=== PATIENT | female | born 1990 | race African-American/Black ===

== ENCOUNTER 2018-05-16 23:25 | Inpatient (IN) | payer MEDICAID ==
[~2018-05-16] VITALS: Ht 180.3 cm; Wt 88.0 kg
--- NOTE | 2018-05-16 23:35 | NUR ---
pt walked in by herself c/o generalized pain, 9/10 on scale. States she has sickle cell, has a portacath on her right chest which was last accessed 2 weeks ago. Pt is A. O/4, walks without assistance, breathing without difficulty to RA.
[2018-05-17] VITALS (8 sets, daily range): BP systolic 110–121; BP diastolic 62–81
[2018-05-17] MEDS ORDERED: ONDANSETRON HCL/PF 4 MG/2 ML VIAL ONE (00:27)
[2018-05-17] MEDS ORDERED: HYDROMORPHONE 1 MG/1 ML DISP.SYRIN ONE ×2 (00:27→01:41)
[2018-05-17] MEDS ORDERED: IV NS 0.9% 1,000 ML BAG IV ONE (00:30)
[2018-05-17] MEDS ORDERED: ONDANSETRON HCL/PF 4 MG/2 ML VIAL IVP ONE (00:30)
[2018-05-17] MEDS ORDERED: HYDROMORPHONE INJ 2 MG/ML DISP.SYRIN IV ONE (00:30)
[2018-05-17 00:50] LABS: BASOPHILS # (AUTO) 0.2 /CMM (0.0-0.2); BASOPHILS % (AUTO) 1.5 % (0.0-2.0); EOSINOPHILS % (AUTO) 2.2 % (0.0-6.0); HEMATOCRIT 26 % (33-45); HEMOGLOBIN 8.6 g/dL (11.5-14.8); LYMPHOCYTES # (AUTO) 3.7 /CMM (0.8-4.8); LYMPHOCYTES % (AUTO) 27.4 % (20.0-44.0); MEAN CORPUSCULAR HGB CONC 33 g/dl (31.0-36.0); MEAN CORPUSCULAR VOLUME 89 fL (82-100); MONOCYTES # (AUTO) 1.6 /CMM (0.1-1.30); MONOCYTES % (AUTO) 11.4 % (2.0-12.0); NEUTROPHILS # (AUTO) 7.8 /CMM (1.8-8.9); NEUTROPHILS % (AUTO) 57.5 % (43.0-81.0); PLATELET COUNT (AUTO) 516 /CMM (150-450); RED BLOOD CELL COUNT(AUTO) 2.87 MIL/uL (4.0-5.2); WHITE BLOOD COUNT (AUTO) 13.6 K/uL (4.3-11.0)
[2018-05-17 00:57] LABS: CALCIUM, SERUM 8.3 mg/dL (8.5-10.1); CREATININE 0.7 mg/dL (0.6-1.3)
[2018-05-17] MEDS ORDERED: HYDROMORPHONE 1 MG/1 ML DISP.SYRIN IV ONE (01:30)
[2018-05-17] MEDS ORDERED: diphenhydrAMINE HCL 50 MG/ML VIAL IV ONE (01:30)
--- NOTE | 2018-05-17 01:39 | NUR ---
PT IS ASSIGNED TO MED SURG RM#: [id number]
[2018-05-17] MEDS ORDERED: diphenhydrAMINE HCL ELIX 25 MG/10 ML UDC ONE (01:40)
[2018-05-17] MEDS ORDERED: diphenhydrAMINE HCL 50 MG/ML VIAL ONE (01:43)
[2018-05-17] MEDS ORDERED: POTASSIUM CHLORIDE 20 MEQ TAB.PRT.SR PO ONE ×3 (01:44→02:00)
[2018-05-17] MEDS ORDERED: MAGNESIUM HYDROXIDE 30 ML UDC PO PRN (02:00)
[2018-05-17] MEDS ORDERED: Z GUARD REMEDY 2 OZ OINT TP PRN (02:00)
[2018-05-17] MEDS ORDERED: MAG HYDROX/AL HYDROX/SIMETH 30 ML UDC PO PRN (02:00)
--- NOTE | 2018-05-17 02:15 | NUR ---
Rogelio tavares in ED - 05/17/18 at 0220 by BECKY Pt will be admitted to [facility], Rm [id number]. Report given to ARACELI Leslie.
--- NOTE | 2018-05-17 02:15 | NUR ---
Pt will be admitted to [facility], Rm [id number]. Report given to ARACELI Leslie.
--- NOTE | 2018-05-17 02:22 | NUR ---
Pt transported to Rm [id number] via wheelchair
[2018-05-17] MEDS: IV NS 0.9% 1,000 ML IV PRN ×3 (02:32→19:07)
--- NOTE | 2018-05-17 02:32 | NUR ---
RN NOTE RECEIVED PATIENT FROM ER, AMBULATORY, ALERT/ORIENTED X 4, NO DISTRESS NOTED, DX SICKLE CELL CRISES, RIGHT CHEST PORT CATH, SKIN IS INTACT, NO S/S OF INFECTION/INFILTRATION NOTED, SKIN IS INTACT, ALL SAFETY MEASURES TAKEN, WILL CONTINUE TO MONITOR PATIENT
[2018-05-17 02:48] LABS: APPEARANCE,URINE CLEAR (CLEAR); BILIRUBIN,URINE NEGATIVE (NEGATIVE); BLOOD, URINE NEGATIVE Ery/uL (NEGATIVE); COLOR,URINE YELLOW (YELLOW); KETONES,URINE NEGATIVE (NEGATIVE); LEUKOCYTE ESTERASE ,URINE NEGATIVE (NEGATIVE); NITRITE, URINE NEGATIVE (NEGATIVE); PROTEIN,URINE NEGATIVE (NEGATIVE); UGLUCOSE NEGATIVE (NEGATIVE); UROBILINOGEN,URINE 0.2 EU/dL (0.2)
[2018-05-17] MEDS ORDERED: MORPHINE SULFATE INJ 4 MG/ML DISP.SYRIN ONE ×2 (02:52→06:50)
[2018-05-17] MEDS: MORPHINE SULFATE INJ 2 MG/ML DISP.SYRIN IV PRN ×2 (02:54→06:54)
--- NOTE | 2018-05-17 03:00 | NUR ---
RN NOTE PATIENT HAS AN ORDER FOR BLOOD TRANSFUSION, AWAITING FOR LAB TO PREPARE PRBC, PATIENT STATED THAT SHE USUALLY GETS ITCHINESS AFTER TRANSFUSION AND THAT SHE GETS IV BENADRYL AFTER TRANSFUSION, NOTIFIED NORBERT MEDRANO NURSE PRACTIONER, NURSE PRACTIONER NORBERT MEDRANO PUT AN ORDER FOR DIPHENHYDRAMINE HCL 12.5MG IV ONCE POST BLOOD TRANSFUSION, WILL ADMINISTER ONCE BLOOD IS READY
--- NOTE | 2018-05-17 03:00 | NUR ---
RN NOTE PATIENT REQUESTED BENADRYL PO DUE TO MILD ITCHINESS, NOTIFIED MARCELA TOUSSAINT SENIOR RESEARCH CONSULTANT FOR PATIENT'S REQUEST, PER SENIOR RESEARCH CONSULTANT MARCELA TOUSSAINT IT IS UNSAFE TO RECEIVE IV BENADRYL (PATIENT RECEIVED MEDICATION IN THE ER 2 HOURS AGO) AND PO BENADRYL WITHIN SUCH A SHORT PERIOD OF TIME, AND CONTINUE TO MONITOR FOR NOW, EXPLAINED PATIENT ALL RISKS AND BENEFITS, PATIENT IS AWARE, CHARGE NURSE IS AWARE
[2018-05-17] MEDS ORDERED: D5W IV PRN ×4 (03:30)
[2018-05-17] MEDS ORDERED: DIPHENHYDRAMINE HCL IV PRN ×4 (03:30)
[2018-05-17] MEDS: HYDROCODONE/APAP 5/325MG 1 EACH TABLET PO PRN ×4 (04:27→21:42)
[2018-05-17 06:52] LABS: BASOPHILS # (AUTO) 0.2 /CMM (0.0-0.2); BASOPHILS % (AUTO) 1.5 % (0.0-2.0); EOSINOPHILS % (AUTO) 2.9 % (0.0-6.0); HEMATOCRIT 23 % (33-45); HEMOGLOBIN 7.8 g/dL (11.5-14.8); LYMPHOCYTES # (AUTO) 4.8 /CMM (0.8-4.8); MEAN CORPUSCULAR HGB CONC 34 g/dl (31.0-36.0); MEAN CORPUSCULAR VOLUME 90 fL (82-100); MONOCYTES # (AUTO) 1.7 /CMM (0.1-1.30); MONOCYTES % (AUTO) 11.5 % (2.0-12.0); NEUTROPHILS # (AUTO) 7.4 /CMM (1.8-8.9); NEUTROPHILS % (AUTO) 51.1 % (43.0-81.0); PLATELET COUNT (AUTO) 459 /CMM (150-450); RED BLOOD CELL COUNT(AUTO) 2.58 MIL/uL (4.0-5.2); WHITE BLOOD COUNT (AUTO) 14.6 K/uL (4.3-11.0)
--- NOTE | 2018-05-17 06:55 | NUR ---
RN NOTE PATIENT IS IN BED, ALERT/ORIENTED X 4, NO APPARENT DISTRESS NOTED, PAIN IS WELL CONTROLLED, WILL CONTINUE TO MONITOR PATIENT
--- NOTE | 2018-05-17 07:15 | NUR ---
MS/RN OPENING NOTE THE PATIENT IS RECEIVED IN BED. THE PATIENT IS AWAKE, ALERT AND ORIENTED X4. DENIES SOB AT THIS TIME. THE PATIENT COMPLAINS OF PAIN 4/10 BUT STATES THAT MORPHINE GIVEN EARLIER IS STATING TO DECREASE THE PAIN. THE PATIENT IS MADE AWARE THAT THE PAIN MONITORING/ASSESSMENT WILL BE DONE AND PRN PAIN MEDICATIONS GIVEN ORDERED. THE PATIENT VERBALIZED UNDERSTANDING. NORMAL SALINE INFUSING AT 150ML/HR VIA RIGHT CHEST PORTACATH AND NO S/S COMPLICATIONS NOTED. BED LOW AND LOCKED. SIDE RAILS UP X2. CALL LIGHT WITHIN REACH. WILL CONTINUE TO MONITOR.
[2018-05-17] MEDS ORDERED: MELA3TAB PO (07:45)
[2018-05-17] MEDS ORDERED: FOLI1TAB16 PO (07:45)
[2018-05-17] MEDS ORDERED: BUDE10.2 IH (07:45)
[2018-05-17] MEDS ORDERED: ALBU18HF2 IH (07:45)
[2018-05-17] MEDS ORDERED: HYDR500C2 PO (07:45)
[2018-05-17] MEDS: ONDANSETRON HCL/PF 4 MG/2 ML VIAL IVP PRN (07:56)
--- NOTE | 2018-05-17 07:56 | NUR ---
MS/RN NOTE THE PATIENT ANUSHA COMPLAIN OF NAUSEA AND REQUESTING MEDICATION TO RELIEVE NAUSEA. THE PATIENT DOES NOT VOMIT AT THIS TIME. ADMINISTERED ZOFRAN IV PUSH PER ORDER. WILL MONITOR FOR EFFECTIVENESS. HOB ELEVATED TO PREVENT ASPIRATION IN CASE OF VOMITING.
--- NOTE | 2018-05-17 08:26 | NUR ---
MS/RN NOTE THE PATIENT VERBALIZED RELIEF FROM NAUSEA. PER PATIENT ZOFRAN WAS EFFECTIVE. WILL CONTINUE TO MONITOR.
[2018-05-17] MEDS ORDERED: ENOXAPARIN SODIUM 30 MG/0.3 ML DISP.SYRIN SQ SCH (09:00)
[2018-05-17] MEDS: DOCUSATE SODIUM 100 MG CAPSULE PO SCH ×2 (09:47→17:05)
[2018-05-17] MEDS: PANTOPRAZOLE 40 MG TABLET.DR PO SCH (09:47)
[2018-05-17] MEDS ORDERED: ENOXAPARIN SODIUM 40 MG/0.4 ML DISP.SYRIN SQ SCH (10:00)
--- NOTE | 2018-05-17 10:05 | NUR ---
MS/RN NOTE PER EVA FROM LAB STILL WAITING FOR PREPARATION OF ORDERED TRANSFUSION. PER EVA MOST LIKELY IT WILL BE READY TONIGHT. WILL CONTINUE TO MONITOR AND FOLLOW UP. DR RAMIREZ IS MADE AWARE.
[2018-05-17] MEDS ORDERED: Medication Not On Formulary EA (Budesonide/Formoterol Fumarate (Symbicort 160-4.5 Mcg In IH SCH (10:30)
[2018-05-17] MEDS ORDERED: Medication Not On Formulary EA (Melatonin 3 MG) PO SCH (10:30)
[2018-05-17] MEDS: MORPHINE SULFATE INJ 4 MG/ML DISP.SYRIN IV PRN ×4 (11:02→23:25)
[2018-05-17] MEDS: HYDROXYUREA 500 MG CAPSULE PO SCH ×2 (11:04→17:05)
[2018-05-17] MEDS: FOLIC ACID 1 MG TABLET PO SCH (11:04)
[2018-05-17] MEDS ORDERED: diphenhydrAMINE HCL 50 MG/ML VIAL IV PRN (11:30)
--- NOTE | 2018-05-17 13:01 | NUR ---
MS/RN NOTE THE PATIENTB HAS COMPLAIN OF GENERALIZED BODY PAIN 12/12. PRN NORCO PO GIVEN ORDERED. WILL CONTINUE FOR EFFECTIVENESS
[2018-05-17] MEDS ORDERED: ALBUTEROL FS 2.5 MG/0.5 ML VIAL.NEB NEB PRN (13:30)
--- NOTE | 2018-05-17 14:33 | NUR ---
MS/RN NOTE REASSESSED PAIN. WILL CONTINUE TO MONITOR.
--- NOTE | 2018-05-17 18:21 | NUR ---
MS/RN CLOSING NOTE THE PATIENT ALERT AND ORIENTED X4. DENIES SOB. RESPIRATION REGULAR AND UNLABORED. PATIENT COMPLAINT OF GENERALIZED BODY PAIN 2/10 AT THIS TIME BUT STATED WANTS TO SLEEP/REST RO RELIEVE THE PAIN. THE PATIENT IS REMINDED ABOUT THE ORDERS OF HER PAIN MEDICATIONS AND THE PATIENT VERBALIZED UNDERSTANDING. ALL NEEDS ATTENDED AND ANTICIPATED. RIGHT CHEST PORTOCATH IS USED TO INFUSE NORMAL SALINE AT 150 ML/HR AND NO COMPLICATIONS NOTED. BED LOW AND LOCKED. SIDE RAILS UP X2. CALL LIGHT WITHIN REACH. WILL ENDORSE TO MACHINE PRECISION ETCHER.
[2018-05-17] MEDS: diphenhydrAMINE HCL 25 MG CAPSULE PO PRN (21:43)
[2018-05-18] VITALS (11 sets, daily range): BP systolic 111–132; BP diastolic 65–91
[2018-05-18] MEDS: HYDROCODONE/APAP 5/325MG 1 EACH TABLET PO PRN (02:20)
--- NOTE | 2018-05-18 02:39 | NUR ---
MS RN NOTES I UNIT PRBC STARTED ORDERED , WITH V/S BP 130/91 HR 74 RR 20 T 97.5 NO ASE NOTED NOTED AT THIS TIME , PTS IS COMFORTABLE IN BED.
--- NOTE | 2018-05-18 02:42 | NUR ---
MS RN NOTES RECEIVED PTS IN BED AWAKE ALERT AND VERBALLY RESPONSIVE, NO SOB NO DISTRESS NOTED , V/S STABLE AFEBRILE PTS ON PORTACATH INTACT AND PATENT , WITH IV F OFNS AT 150 CC/HR INFUSING WELL . ALL NEEDS ATTENDE TOO CALL LIGHT WITHIN REACH , KEPT PTS CLEAN DRY AND COMFORTABLE. WILL CONTINUE TO MONITOR PTS. Addendum: 05/18/18 at 0306 by VASQUEZ ABRAHAM RN TIME RECEIVED PTS IS 05/17 2018 AT 1900HRS
[2018-05-18] MEDS: MORPHINE SULFATE INJ 4 MG/ML DISP.SYRIN IV PRN ×5 (03:18→21:03)
[2018-05-18] MEDS ORDERED: diphenhydrAMINE HCL 50 MG/ML VIAL ONE (04:57)
--- NOTE | 2018-05-18 05:13 | NUR ---
MS RN NOTES BLOOD TRANSFUSION COMPLETED AT 0513 HRS ,NO ASE NOTED V/S STABLE AFEBRILE ,WILL CONTINUE TO MONITOR PTS , BENADRYL 12.5 MG WITH D5 AT 50CC GIVEN POST TRANSFUSION ORDERED.
[2018-05-18] MEDS: IV NS 0.9% 1,000 ML IV PRN ×2 (06:42→22:54)
[2018-05-18 07:23] LABS: BASOPHILS # (AUTO) 0.2 /CMM (0.0-0.2); BASOPHILS % (AUTO) 1.6 % (0.0-2.0); EOSINOPHILS % (AUTO) 5.3 % (0.0-6.0); HEMATOCRIT 25 % (33-45); HEMOGLOBIN 8.6 g/dL (11.5-14.8); LYMPHOCYTES % (AUTO) 28.6 % (20.0-44.0); MEAN CORPUSCULAR HGB CONC 34 g/dl (31.0-36.0); MEAN CORPUSCULAR VOLUME 90 fL (82-100); MONOCYTES # (AUTO) 1.9 /CMM (0.1-1.30); MONOCYTES % (AUTO) 13.4 % (2.0-12.0); NEUTROPHILS # (AUTO) 7.2 /CMM (1.8-8.9); NEUTROPHILS % (AUTO) 51.1 % (43.0-81.0); PLATELET COUNT (AUTO) 419 /CMM (150-450); RED BLOOD CELL COUNT(AUTO) 2.78 MIL/uL (4.0-5.2)
--- NOTE | 2018-05-18 07:30 | NUR ---
MS OPENING NOTES PATIENT RECEIVED IN BED AAOX4. PATIENT COMPLAINED OF PAIN 8/10 AND MORPHINE 2MG GIVEN PER MD ORDER. PATIENT DENIES ANY S/S OF DISTRESS. PATIENT HAS PORTACATH, PATENT INTACT, RUNNNING 150 MLS/HR NS. BED IN LOWEST LOCKED POSITION, ALL NEEDS ATTENDED, CALL LIGHT WITHIN REACH. RN WILL CONTINUE TO MONITOR
[2018-05-18] MEDS: PANTOPRAZOLE 40 MG TABLET.DR PO SCH (07:40)
[2018-05-18 07:50] LABS: CREATININE 0.7 mg/dL (0.6-1.3); MAGNESIUM 1.6 mg/dL (1.8-2.4); PHOSPHORUS 4.1 mg/dL (2.5-4.9); POTASSIUM 3.7 mmol/L (3.5-5.1)
[2018-05-18 08:02] LABS: THYROID STIMULATING HORMONE 1.087 uIU/mL (0.358-3.74)
[2018-05-18] MEDS: DOCUSATE SODIUM 100 MG CAPSULE PO SCH ×2 (08:45→16:35)
[2018-05-18] MEDS: FOLIC ACID 1 MG TABLET PO SCH (08:45)
[2018-05-18] MEDS: HYDROXYUREA 500 MG CAPSULE PO SCH ×2 (08:45→16:34)
[2018-05-18] MEDS: ENOXAPARIN SODIUM 40 MG/0.4 ML DISP.SYRIN SQ SCH (08:46)
[2018-05-18] MEDS: FLUTICASONE/VILANTEROL 1 EACH BLST.W.DEV IH SCH (08:58)
[2018-05-18] MEDS ORDERED: ENOXAPARIN SODIUM 40 MG/0.4 ML DISP.SYRIN SQ SCH (09:00)
[2018-05-18] MEDS ORDERED: Magnesium 1GM/D5W 100ML PREMIX 100 ML IV SCH ×2 (10:46→11:00)
[2018-05-18] MEDS: ACETAMINOPHEN 325 MG TABLET PO PRN ×2 (13:37→20:01)
[2018-05-18] MEDS: ONDANSETRON HCL/PF 4 MG/2 ML VIAL IVP PRN (17:29)
[2018-05-19] MEDS: MORPHINE SULFATE INJ 4 MG/ML DISP.SYRIN IV PRN ×4 (01:07→13:12)
[2018-05-19] MEDS: diphenhydrAMINE HCL 25 MG CAPSULE PO PRN (01:34)
[2018-05-19] MEDS: HYDROCODONE/APAP 5/325MG 1 EACH TABLET PO PRN (01:34)
[2018-05-19 04:00] VITALS: BP 136/89
--- NOTE | 2018-05-19 07:26 | NUR ---
MS OPENING NOTE PATIENT RECEIVED FROM NUCLEAR WEAPONS SPECIALIST, SLEEPING AAOX4. PATIENT PAIN WAS MANAGED WITH MORPHINE Q4. NO S.S OF DISTRESS/SOB/. RN TO CONTINUE WITH CONTINUITY OF CARE. BED IN LOWEST LOCKED POSITION, SIDE RAILS UP X 2, CALL LIGHT AT BEDSIDE.
[2018-05-19 07:44] LABS: BASOPHILS # (AUTO) 0.1 /CMM (0.0-0.2); EOSINOPHILS % (AUTO) 6.1 % (0.0-6.0); HEMATOCRIT 26 % (33-45); HEMOGLOBIN 8.9 g/dL (11.5-14.8); LYMPHOCYTES # (AUTO) 4.2 /CMM (0.8-4.8); MEAN CORPUSCULAR HGB CONC 34 g/dl (31.0-36.0); MEAN CORPUSCULAR VOLUME 91 fL (82-100); MONOCYTES # (AUTO) 1.2 /CMM (0.1-1.30); MONOCYTES % (AUTO) 9.7 % (2.0-12.0); NEUTROPHILS # (AUTO) 6.1 /CMM (1.8-8.9); NEUTROPHILS % (AUTO) 49.2 % (43.0-81.0); PLATELET COUNT (AUTO) 463 /CMM (150-450); RED BLOOD CELL COUNT(AUTO) 2.89 MIL/uL (4.0-5.2); WHITE BLOOD COUNT (AUTO) 12.3 K/uL (4.3-11.0)
[2018-05-19 08:00] VITALS: BP 128/86
[2018-05-19] MEDS: PANTOPRAZOLE 40 MG TABLET.DR PO SCH (08:00)
[2018-05-19] MEDS: FLUTICASONE/VILANTEROL 1 EACH BLST.W.DEV IH SCH (08:12)
[2018-05-19] MEDS: FOLIC ACID 1 MG TABLET PO SCH (08:13)
[2018-05-19] MEDS: HYDROXYUREA 500 MG CAPSULE PO SCH ×2 (08:13→16:40)
[2018-05-19] MEDS: DOCUSATE SODIUM 100 MG CAPSULE PO SCH ×2 (08:13→16:40)
[2018-05-19] MEDS: ENOXAPARIN SODIUM 40 MG/0.4 ML DISP.SYRIN SQ SCH (08:14)
[2018-05-19 08:40] LABS: CALCIUM, SERUM 8.3 mg/dL (8.5-10.1); CREATININE 0.7 mg/dL (0.6-1.3); MAGNESIUM 1.8 mg/dL (1.8-2.4); PHOSPHORUS 3.9 mg/dL (2.5-4.9); POTASSIUM 3.6 mmol/L (3.5-5.1)
[2018-05-19] MEDS ORDERED: BUTA1CAP46 PO (13:32)
[2018-05-19] MEDS ORDERED: OXYC-128 PO (13:32)
[2018-05-19 16:00] VITALS: BP 133/91
[2018-05-19] MEDS ORDERED: HEPARIN SODIUM,PORCINE/PF 50 UNIT/5 ML DISP.SYRIN IV ONE (16:30)
--- NOTE | 2018-05-19 16:55 | NUR ---
MS RN NOTE PATIENT STABLE AT D/C. ALL NEEDS ATTENDED. D/C INSTRUCTIONS GIVEN, PATIENT VERBALIZES UNDERSTANDING. NO S/S OF DISTRESS. PATIENT GIVEN PRESCRIPTIONS FOR PAIN MANAGEMENT AND WAS PICKED UP BY FAMILY MEMBER.
== END 2018-05-19 17:10 | disposition home or self-care (01) | DRG 662 ==
LOC: ER 23:53 → MEDSG1 05-17 01:55
PROVIDERS: ADMIT Student in an Organized Health Care Education/Training Program; ATTEND Student in an Organized Health Care Education/Training Program
PROC: 30233N1 Transfusion of Nonautologous Red Blood Cells into Peripheral Vein, Percutaneous Approach (ICD-10-PCS; principal; 2018-05-18)
DX: D57.00 Hb-SS disease with crisis, unspecified (principal); E83.51 Hypocalcemia; J45.909 Unspecified asthma, uncomplicated; E87.6 Hypokalemia; D72.829 Elevated white blood cell count, unspecified; D64.9 Anemia, unspecified
CPT/HCPCS: 36415; 71045-TC; 80048-TC; 80061-TC; 81000-TC; 83540-TC; 83735-TC; 84100-TC; 84443-TC; 84703-TC; 85025-TC; 85045-TC; 85730-TC; 86850-TC; 86921-TC; 87081-TC; A4606; G0378; J1170; J1200; J1642; J1650; J2270; J2405; J3475; J7030; J7050; J7060; P9016-BL; Q0163; Z7610

== ENCOUNTER 2018-05-21 04:20 | Inpatient (IN) | payer MEDICAID ==
[~2018-05-21] VITALS: Ht 180.3 cm; Wt 92.1 kg
[~2018-05-21 04:20] MED LIST: ALBU18HF2 IH; BUDE10.2 IH; BUTA1CAP46 PO; FOLI1TAB16 PO; HYDR500C2 PO; MELA3TAB PO; OXYC-128 PO
--- NOTE | 2018-05-21 04:40 | NUR ---
BIB SELF C/O PARTIDA X4 DAYS. +NAUSEA, DENIES VOMITING. +DIARRHEA X 2. PAIN LEVEL 9/10. PT IS AOX4, VSS, RESPIRATIONS EVEN AND UNLABORED. NO ACUTE SIGN OF DISTRESS. SKIN WARM TO TOUCH, DRY, INTACT. WAS HERE RECENTLY FOR SICKLE CELL CRISIS AND RECEIVED PERCOCET. STATES MEDICATION NOT EFFECTIVE. READY FOR EVAL.
--- NOTE | 2018-05-21 04:44 | NUR ---
MD GRANT AT BEDSIDE
[2018-05-21] MEDS ORDERED: IV NS 0.9% 1,000 ML BAG IV ONE (05:00)
[2018-05-21] MEDS ORDERED: HYDROMORPHONE INJ 0.5 MG/0.5 ML SYRINGE IV ONE (05:00)
[2018-05-21] MEDS ORDERED: diphenhydrAMINE HCL 50 MG/ML VIAL IV ONE ×2 (05:00→06:00)
[2018-05-21] MEDS ORDERED: ONDANSETRON HCL/PF 4 MG/2 ML VIAL IV ONE (05:00)
[2018-05-21] MEDS ORDERED: diphenhydrAMINE HCL 50 MG/ML VIAL ONE ×2 (05:05→05:49)
[2018-05-21] MEDS ORDERED: HYDROMORPHONE INJ 2 MG/ML DISP.SYRIN ONE ×2 (05:06→06:14)
[2018-05-21] MEDS ORDERED: ONDANSETRON HCL/PF 4 MG/2 ML VIAL ONE (05:06)
[2018-05-21 05:14] LABS: BASOPHILS # (AUTO) 0.2 /CMM (0.0-0.2); BASOPHILS % (AUTO) 1.1 % (0.0-2.0); EOSINOPHILS % (AUTO) 1.1 % (0.0-6.0); HEMATOCRIT 33 % (33-45); HEMOGLOBIN 10.7 g/dL (11.5-14.8); LYMPHOCYTES % (AUTO) 20.8 % (20.0-44.0); MEAN CORPUSCULAR HGB CONC 33 g/dl (31.0-36.0); MEAN CORPUSCULAR VOLUME 90 fL (82-100); MONOCYTES # (AUTO) 1.2 /CMM (0.1-1.30); MONOCYTES % (AUTO) 8.6 % (2.0-12.0); NEUTROPHILS # (AUTO) 9.8 /CMM (1.8-8.9); NEUTROPHILS % (AUTO) 68.4 % (43.0-81.0); PLATELET COUNT (AUTO) 496 /CMM (150-450); RED BLOOD CELL COUNT(AUTO) 3.64 MIL/uL (4.0-5.2); WHITE BLOOD COUNT (AUTO) 14.3 K/uL (4.3-11.0)
[2018-05-21] MEDS ORDERED: HEPARIN SODIUM, PORCINE 5000 UNITS/1 ML VIAL ONE (05:28)
[2018-05-21] MEDS ORDERED: HEPARIN-LOCK FLUSH PORCINE PF 10 UNITS/1 ML (10 ML)DISP.SYRIN IV ONE (05:30)
[2018-05-21 05:35] LABS: ALBUMIN 3.6 g/dL (3.4-5.0); BILIRUBIN,DIRECT 0.4 mg/dL (0.0-0.2); BILIRUBIN,TOTAL 2.1 mg/dL (0.2-1.0); CALCIUM, SERUM 9.1 mg/dL (8.5-10.1); CREATININE 0.8 mg/dL (0.6-1.3); POTASSIUM 3.1 mmol/L (3.5-5.1); TOTAL PROTEIN, SERUM 9.2 g/dL (6.4-8.2)
[2018-05-21] MEDS ORDERED: POTASSIUM CHLORIDE 20 MEQ TAB.PRT.SR PO ONE (06:00)
--- NOTE | 2018-05-21 06:05 | NUR ---
PT IS GOING TO MS [id number]
[2018-05-21] MEDS ORDERED: HYDROMORPHONE INJ 2 MG/ML DISP.SYRIN IV STA (06:11)
--- NOTE | 2018-05-21 06:25 | NUR ---
PT TRANSPORTED TO [address] [place] [address] IN NO ACUTE DISTRESS VIA WHEEL CHAIR. REPORT ENDORSED TO ONESIMO CHARLES FOR CONTINUITY OF CARE.
[2018-05-21] MEDS ORDERED: Z GUARD REMEDY 2 OZ OINT TP PRN (06:30)
[2018-05-21] MEDS ORDERED: diphenhydrAMINE HCL 50 MG CAPSULE PO PRN (06:30)
[2018-05-21] MEDS ORDERED: ACETAMINOPHEN 325 MG TABLET PO PRN (06:30)
[2018-05-21] MEDS ORDERED: ONDANSETRON HCL/PF 4 MG/2 ML VIAL IVP PRN (06:30)
[2018-05-21] MEDS ORDERED: MORPHINE SULFATE INJ 2 MG/ML DISP.SYRIN IV PRN (06:30)
[2018-05-21] MEDS ORDERED: MAG HYDROX/AL HYDROX/SIMETH 30 ML UDC PO PRN (06:30)
[2018-05-21] MEDS ORDERED: MAGNESIUM HYDROXIDE 30 ML UDC PO PRN (06:30)
[2018-05-21] MEDS ORDERED: HYDROCODONE/APAP 5/325MG 1 EACH TABLET PO PRN (06:30)
[2018-05-21] MEDS ORDERED: ENOXAPARIN SODIUM 40 MG/0.4 ML DISP.SYRIN SQ SCH (06:30)
--- NOTE | 2018-05-21 06:35 | NUR ---
FOREST EXAMINER NOTES PATIENT BROUGHT INTO UNIT ON A WHEELCHAIR FROM THE ER. PT IS ALERT AND ORIENTED X 4, NO SOB NOTED, IN NO ACUTE DISTRESS, DENIES PAIN AT THIS TIME, VERBALIZED THAT SHE STILL HAS SOME ITCHING BUT HAS ALREADY RECEIVED BENADRYL IN THE ER. ALL PATIENT'S NEEDS ATTENDED TO, KEPT PT SAFE AND DRY, CLEAN AND COMFORTABLE. ORIENTED PT TO ROOM, UNIT, CALL LIGHT AND USE OF CALL LIGHT. PT VERBALIZED UNDERSTANDING. PT IS UNDER TELE MONITORING WITH SINUS RHYTHM @ 100s BPM.WILL ENDORSE TO AM SHIFT FOR ADMISSION AND CONTINUITY OF CARE.
[2018-05-21 06:52] VITALS: BP 121/81
[2018-05-21] MEDS: PANTOPRAZOLE 40 MG TABLET.DR PO SCH (06:57)
[2018-05-21] MEDS ORDERED: LEVOFLOXACIN (500MG) 500 MG TABLET PO SCH (07:00)
[2018-05-21] MEDS ORDERED: ALBUTEROL SULFATE 8 GM HFA.AER.AD IH PRN (07:00)
--- NOTE | 2018-05-21 07:43 | NUR ---
MECHANICAL OXIDIZER NOTES RECEIVED PATIENT AWAKE IN BED IN STABLE CONDITION. NO RESPIRATORY DISTRESS NOTED. NO C/O PAIN OR DISCOMFORT. PORTACATH INTACT AND PATENT. BED IN LOW LOCK SETTING. ALL BELONGINGS NEAR BEDSIDE. CALL LIGHT WITHIN REACH. WILL CONTINUE TO MONITOR.
[2018-05-21 08:06] VITALS: BP 115/69
[2018-05-21] MEDS: IV NS 0.9% 1,000 ML IV PRN ×3 (08:10→23:15)
[2018-05-21] MEDS: HYDROXYUREA 500 MG CAPSULE PO SCH ×2 (08:19→17:47)
[2018-05-21] MEDS: FOLIC ACID 1 MG TABLET PO SCH (08:19)
[2018-05-21] MEDS ORDERED: BUTALB/APAP/CAFFEINE 1 EACH TABLET PO PRN (08:30)
[2018-05-21] MEDS ORDERED: HYDROMORPHONE INJ 0.5 MG/0.5 ML SYRINGE IV PRN (09:30)
[2018-05-21] MEDS ORDERED: ALBUTEROL FS 2.5 MG/0.5 ML VIAL.NEB NEB PRN (10:00)
[2018-05-21] MEDS ORDERED: HYDROMORPHONE 1 MG/1 ML DISP.SYRIN IV PRN (10:08)
[2018-05-21] MEDS ORDERED: POTASSIUM CHLORIDE 20 MEQ TAB.PRT.SR PO SCH (11:00)
[2018-05-21] MEDS: HYDROMORPHONE 1 MG/1 ML DISP.SYRIN IV PRN ×2 (13:32→17:48)
[2018-05-21 16:00] VITALS: BP 120/78
[2018-05-21 16:21] LABS: APPEARANCE,URINE SL CLOUDY (CLEAR); BILIRUBIN,URINE NEGATIVE (NEGATIVE); BLOOD, URINE TRACE Ery/uL (NEGATIVE); COLOR,URINE YELLOW (YELLOW); KETONES,URINE NEGATIVE (NEGATIVE); LEUKOCYTE ESTERASE ,URINE NEGATIVE (NEGATIVE); NITRITE, URINE NEGATIVE (NEGATIVE); PROTEIN,URINE NEGATIVE (NEGATIVE); UGLUCOSE NEGATIVE (NEGATIVE)
[2018-05-21 16:34] LABS: BACTERIA,URINE Few /HPF (None Seen); RBC,URINE NONE SEEN /HPF (0-2); SQUAMOUS EPITHELIAL CELL,UR Few /HPF (None Seen); URINE AMORPHOUS PHOSPHATES Few /HPF (None Seen); WBC,URINE 0-2 /HPF (0-3)
[2018-05-21] MEDS ORDERED: Medication Not On Formulary EA (Melatonin 3 MG) PO SCH (18:00)
--- NOTE | 2018-05-21 18:58 | NUR ---
MS RN NOTES PATIENT IN BED RESTING NO SOB OR ACUTE DISTRESS NOTED. PATIENT ALERT, ORIENTED X3 AMBULATORY. ALL DUE MEDICATIONS ADMINISTERED. ALL NEEDS MET. PAIN CONTROLLED WITH MEDICATION. WILL ENDORSE CARE TO PM SHIFT.
[2018-05-21] MEDS ORDERED: oxyCODONE/APAP (5/325 MG) 1 UDTAB TABLET PO PRN (19:00)
--- NOTE | 2018-05-21 19:10 | NUR ---
RN OPENING NOTES PT AWAKE AND SITTING IN A CHAIR IN THE HALLWAY. NO COMPLAINTS OF PAIN, SOB OR DISTRESS AT THIS TIME. PT HAS A RIGHT CHEST WALL PORTACATH. PER DAY SHIFT NURSE MD WOULD LIKE TO MANAGE PAIN WITH PO MEDICATIONS BEFORE THE USE OF DILAUDID. SAFETY PRECAUTIONS IN PLACE, BED IN LOWEST LOCKED POSITION, X2 SIDE RAILS UP AND CALL LIGHT WITHIN REACH. WILL CONTINUE TO MONITOR.
[2018-05-21] MEDS: GABAPENTIN 300 MG CAPSULE PO SCH (19:42)
[2018-05-21 20:00] VITALS: BP 117/82
[2018-05-22] MEDS: oxyCODONE/APAP (5/325 MG) 1 UDTAB TABLET PO PRN ×3 (00:01→19:54)
[2018-05-22] MEDS: HYDROMORPHONE 1 MG/1 ML DISP.SYRIN IV PRN ×4 (05:18→21:31)
[2018-05-22] MEDS ORDERED: LEVOFLOXACIN 500 MG /D5W 100ML 500 MG in PREMIX 1 EA IV SCH (06:00)
[2018-05-22] MEDS: IV NS 0.9% 1,000 ML IV PRN ×2 (06:16→16:24)
--- NOTE | 2018-05-22 07:00 | NUR ---
RN CLOSING NOTES PT AWAKE AND ALERT. ALL PT NEEDS MET OVERNIGHT. PT HAS A RIGHT CHEST WALL PORTACATH RUNNING NS @75ML/HR. MD WOULD LIKE TO MANAGE PAIN WITH PO MEDICATIONS BEFORE THE USE OF DILAUDID. PERCOCET 5 AND 10 USED, LASTLY DILAUDID 0.5. SAFETY PRECAUTIONS IN PLACE, BED IN LOWEST LOCKED POSITION, X2 SIDE RAILS UP AND CALL LIGHT WITHIN REACH. WILL ENDORSE TO DAY SHIFT NURSE FOR CONTINUITY OF CARE.
[2018-05-22 07:08] LABS: BASOPHILS # (AUTO) 0.1 /CMM (0.0-0.2); BASOPHILS % (AUTO) 1.2 % (0.0-2.0); EOSINOPHILS % (AUTO) 5.3 % (0.0-6.0); HEMATOCRIT 28 % (33-45); HEMOGLOBIN 9.5 g/dL (11.5-14.8); LYMPHOCYTES # (AUTO) 3.1 /CMM (0.8-4.8); LYMPHOCYTES % (AUTO) 30.7 % (20.0-44.0); MEAN CORPUSCULAR HGB CONC 34 g/dl (31.0-36.0); MEAN CORPUSCULAR VOLUME 90 fL (82-100); MONOCYTES # (AUTO) 1.1 /CMM (0.1-1.30); MONOCYTES % (AUTO) 11.1 % (2.0-12.0); NEUTROPHILS # (AUTO) 5.2 /CMM (1.8-8.9); NEUTROPHILS % (AUTO) 51.7 % (43.0-81.0); PLATELET COUNT (AUTO) 412 /CMM (150-450); RED BLOOD CELL COUNT(AUTO) 3.07 MIL/uL (4.0-5.2)
[2018-05-22 07:24] LABS: ALBUMIN 2.9 g/dL (3.4-5.0); BILIRUBIN,TOTAL 1.8 mg/dL (0.2-1.0); CALCIUM, SERUM 8.3 mg/dL (8.5-10.1); CREATININE 0.7 mg/dL (0.6-1.3); MAGNESIUM 1.9 mg/dL (1.8-2.4); PHOSPHORUS 4.3 mg/dL (2.5-4.9); POTASSIUM 4.5 mmol/L (3.5-5.1); TOTAL PROTEIN, SERUM 7.7 g/dL (6.4-8.2)
--- NOTE | 2018-05-22 07:38 | NUR ---
MS RN NOTES RECEIVED PATIENT ASLEEP IN BED WITH NO DISTRESS NOTED. PORTACATH LINE INTACT AND PATENT. BED IN LOW LOCK SETTING. ALL BELONGINGS NEAR BEDSIDE. CALL LIGHT WITHIN REACH. WILL CONTINUE TO MONITOR.
[2018-05-22 07:44] LABS: THYROID STIMULATING HORMONE 0.976 uIU/mL (0.358-3.74)
[2018-05-22] MEDS: PANTOPRAZOLE 40 MG TABLET.DR PO SCH (08:27)
[2018-05-22] MEDS: FOLIC ACID 1 MG TABLET PO SCH (08:34)
[2018-05-22] MEDS: GABAPENTIN 300 MG CAPSULE PO SCH ×3 (08:34→16:23)
[2018-05-22] MEDS: HYDROXYUREA 500 MG CAPSULE PO SCH ×2 (08:35→17:34)
[2018-05-22] MEDS: ENOXAPARIN SODIUM 40 MG/0.4 ML DISP.SYRIN SQ SCH (09:02)
[2018-05-22 10:13] VITALS: BP 123/78
[2018-05-22] MEDS ORDERED: IOHEXOL-300 100 ML VIAL IV ONE (10:35)
[2018-05-22] MEDS ORDERED: IV NS 0.9% 250 ML IV ONE (10:36)
[2018-05-22] MEDS ORDERED: CT SWABBABLE VALVE TRANS SET 1 EA INFUS.SET MC ONE (10:36)
[2018-05-22] MEDS: FLUTICASONE/VILANTEROL 1 EACH BLST.W.DEV IH SCH (10:58)
[2018-05-22 16:00] VITALS: BP 125/72
--- NOTE | 2018-05-22 18:18 | NUR ---
MS RN NOTES PATIENT REMAINS AWAKE IN BED AND WATCHING TV. NO DISTRESS NOTED. NO C/O PAIN OR DISCOMFORT. ALL DUE MEDS GIVEN ORDERED WITH NO ASE NOTED. PERIPHERAL IV INTACT/PATENT. ALL BELONGINGS KEPT NEAR BEDSIDE. CALL LIGHT WITHIN REACH. BED IN LOW LOCK SETTING.
--- NOTE | 2018-05-22 19:10 | NUR ---
MS RN INITIAL NOTES PATIENT RECEIVED IN BED, WATCHING TV. ALERT, ORIENTED X 4. BREATHING EVEN AND UNLABORED. NOT IN ANY DISTRESS. PERIPHERAL IV INFUSING AT 150ML/HR. CALL [place] WITHIN EASY REACH. BED IN LOW, LOCKED POSITION. PATIENT STABLE ENDORSED BY THE MORNING RN. WILL CONTINUE TO MONITOR ACCORDINGLY.
--- NOTE | 2018-05-22 19:54 | NUR ---
RN NOTES PATIENT C/O BACK PAIN, 02/12. PERCOCET 5/325 2 TABLETS GIVEN ORDERED.
[2018-05-22 20:00] VITALS: BP 133/90
--- NOTE | 2018-05-22 21:35 | NUR ---
RN NOTES PATIENT STILL COMPLAINING OF BACK PAIN, 02/12. STATED THAT PERCOCET DOESN'T WORK. DILUADID 0.5MG GIVEN ORDERED. 0.5MG WASTED. PATIENT ALSO REQUESTED TO BE OFF IVF. SHE WILL RING THE [place] IF SHE IS READY TO BE HOOKED BACK TO THE IVF
[2018-05-23] MEDS: oxyCODONE/APAP (5/325 MG) 1 UDTAB TABLET PO PRN ×4 (01:12→19:37)
--- NOTE | 2018-05-23 01:14 | NUR ---
RN NOTES PATIENT STILL COMPLAINING OF BACK PAIN 02/12. PERCOCET 5/325 2 TABLETS GIVEN ORDERED
[2018-05-23] MEDS: HYDROMORPHONE 1 MG/1 ML DISP.SYRIN IV PRN ×6 (02:21→23:01)
--- NOTE | 2018-05-23 02:25 | NUR ---
RN NOTES PATIENT C/O BACK PAIN, 02/12. DILAUDID 0.5MG GIVEN ORDERED
[2018-05-23] MEDS: IV NS 0.9% 1,000 ML IV PRN ×2 (04:26→12:00)
--- NOTE | 2018-05-23 06:39 | NUR ---
RN NOTES PATIENT C/O BACK PAIN, 02/12. DILAUDID 0.5MG GIVEN ORDERED
[2018-05-23 06:50] LABS: BASOPHILS # (AUTO) 0.2 /CMM (0.0-0.2); BASOPHILS % (AUTO) 1.6 % (0.0-2.0); EOSINOPHILS % (AUTO) 6.6 % (0.0-6.0); HEMATOCRIT 27 % (33-45); HEMOGLOBIN 9.3 g/dL (11.5-14.8); LYMPHOCYTES # (AUTO) 3.4 /CMM (0.8-4.8); LYMPHOCYTES % (AUTO) 32.8 % (20.0-44.0); MEAN CORPUSCULAR HGB CONC 35 g/dl (31.0-36.0); MEAN CORPUSCULAR VOLUME 90 fL (82-100); MONOCYTES % (AUTO) 9.8 % (2.0-12.0); NEUTROPHILS # (AUTO) 5.1 /CMM (1.8-8.9); NEUTROPHILS % (AUTO) 49.2 % (43.0-81.0); PLATELET COUNT (AUTO) 386 /CMM (150-450); RED BLOOD CELL COUNT(AUTO) 2.96 MIL/uL (4.0-5.2); WHITE BLOOD COUNT (AUTO) 10.4 K/uL (4.3-11.0)
[2018-05-23 07:05] LABS: CALCIUM, SERUM 8.5 mg/dL (8.5-10.1); CREATININE 0.6 mg/dL (0.6-1.3); POTASSIUM 4.1 mmol/L (3.5-5.1)
--- NOTE | 2018-05-23 07:20 | NUR ---
RN CLOSING NOTES PATIENT SLEEPING IN BED. NO DISTRESS NOTED. NO C/O PAIN OR DISCOMFORT OF THIS TIME. ALL DUE MEDS GIVEN ORDERED. PERIPHERAL IV INFUSING AT 150ML/HR. ALL NEEDS ATTENDED TO. CALL LIGHT WITHIN REACH. BED IN LOW LOCK POSITION. ENDORSED ALONDRA TO AM RN
[2018-05-23] MEDS: PANTOPRAZOLE 40 MG TABLET.DR PO SCH (07:28)
--- NOTE | 2018-05-23 07:40 | NUR ---
M/S RN - Assessment Patient awake, A/O x 4, c/o generalized pain LA=8/10, Percocet 2 tabs given, no apparent distress noted, stable on room air. IVF NS at 150 ml/hr infusing well on the right chest poppy cath with no signs of complications. Skin is intact. Patient independent with bed mobility. Fall precautions maintained. Patient educated on plan of care. Will continue with current medical management.
[2018-05-23 08:00] VITALS: BP 137/91
[2018-05-23] MEDS: FOLIC ACID 1 MG TABLET PO SCH (08:15)
[2018-05-23] MEDS: GABAPENTIN 300 MG CAPSULE PO SCH ×3 (08:15→16:11)
[2018-05-23] MEDS: ENOXAPARIN SODIUM 40 MG/0.4 ML DISP.SYRIN SQ SCH (08:16)
[2018-05-23] MEDS: HYDROXYUREA 500 MG CAPSULE PO SCH ×2 (08:17→16:11)
[2018-05-23] MEDS: FLUTICASONE/VILANTEROL 1 EACH BLST.W.DEV IH SCH (08:17)
[2018-05-23 16:00] VITALS: BP 132/96
--- NOTE | 2018-05-23 17:41 | NUR ---
M/S RN - Closing Notes Patient alert and oriented throughout the shift, remain afebrile, pain controlled with Percocet 2 tabs Q6hrs PRN and Dilaudid 0.5 mg IVP Q4hrs PRN. All needs attended and met. Will continue with current medical management.
--- NOTE | 2018-05-23 19:30 | NUR ---
RN NOTE; RECEIVED PT SITTING IN BED AWAKE AND RESPONSIVE. BREATHING EVENLY. NO SOB. NO ACUTE DISTRESS. WITH ONGOING C/O GENERALIZED BODY PAIN. PT WAS ADVISED TO WAIT FOR THE DILAUDID TO TAKE EFFECT . REFUSED AND REQUESTING PERCOCET. TO GIVE. NEEDS ATTENDED. BED LOW LOCKED. CALL LIGHT WITHIN REACH. WILL CONT TO MONITOR,
--- NOTE | 2018-05-23 19:37 | NUR ---
PERCOCET TWO TABS GIVEN ORDERED PER PT'S REQUEST AND C/O PAIN . WILL CONT TO MONITOR ,
[2018-05-23 20:00] VITALS: BP 124/79
--- NOTE | 2018-05-23 23:01 | NUR ---
dialudid GIVEN ORDERED PER PT'S REQUEST AND C/O PAIN . WILL CONT TO MONITOR ,
[2018-05-24] MEDS: oxyCODONE/APAP (5/325 MG) 1 UDTAB TABLET PO PRN ×3 (01:40→14:25)
--- NOTE | 2018-05-24 01:42 | NUR ---
PERCOCET TWO TABS GIVEN ORDERED PER PT'S REQUEST FOR C/O PAIN . WILL CONT TO MONITOR
[2018-05-24] MEDS: HYDROMORPHONE 1 MG/1 ML DISP.SYRIN IV PRN ×3 (03:09→15:15)
--- NOTE | 2018-05-24 03:09 | NUR ---
DILAUDID GIVEN ORDERED PER PT'S REQUEST FOR C/O PAIN. WILL CONT TO MONITOR,
[2018-05-24] MEDS: IV NS 0.9% 1,000 ML IV PRN (03:19)
--- NOTE | 2018-05-24 06:45 | NUR ---
PT IN BED AWAKE. POOR SLEEP PATTERN. BREATHING EVENLY. NO SOB. NO COUGH. NO ACUTE EVENT DURING THE NIGHT. WITH RECURRENT C/O PAIN AND FREQUENT REQUEST FOR PAIN MEDICATION. GIVEN ORDERED PER PT'S REQUEST, NEEDS ATTENDED , ASSISTED W/ ADLS. BED LOW LOCKED, CALL LIGHT WITHIN REACH. WILL CONT TO MONITOR AND WILL ENDORSE TO AM SHIFT FOR ALONDRA.
[2018-05-24 07:21] LABS: BASOPHILS # (AUTO) 0.1 /CMM (0.0-0.2); BASOPHILS % (AUTO) 0.9 % (0.0-2.0); EOSINOPHILS % (AUTO) 4.6 % (0.0-6.0); HEMATOCRIT 27 % (33-45); HEMOGLOBIN 9.7 g/dL (11.5-14.8); LYMPHOCYTES # (AUTO) 3.3 /CMM (0.8-4.8); LYMPHOCYTES % (AUTO) 33.9 % (20.0-44.0); MEAN CORPUSCULAR HGB CONC 36 g/dl (31.0-36.0); MEAN CORPUSCULAR VOLUME 90 fL (82-100); MONOCYTES # (AUTO) 0.8 /CMM (0.1-1.30); MONOCYTES % (AUTO) 8.3 % (2.0-12.0); NEUTROPHILS # (AUTO) 5.1 /CMM (1.8-8.9); NEUTROPHILS % (AUTO) 52.3 % (43.0-81.0); PLATELET COUNT (AUTO) 334 /CMM (150-450); RED BLOOD CELL COUNT(AUTO) 2.99 MIL/uL (4.0-5.2); WHITE BLOOD COUNT (AUTO) 9.8 K/uL (4.3-11.0)
[2018-05-24] MEDS: PANTOPRAZOLE 40 MG TABLET.DR PO SCH (07:21)
--- NOTE | 2018-05-24 07:25 | NUR ---
RN NOTES PT DISCHARGED FROM UNIT IN STABLE CONDITION. ALL BELONGINGS AND DISCHARGE PAPERWORK SENT WITH PT. ID BAND AND IV REMOVED. ACCOMPANIED BY PAUL. Addendum: 05/24/18 at 2212 by ROOSEVELT APPLE RN WRONG TIME - SHOULD BE 192
[2018-05-24 07:26] LABS: ALBUMIN 3.1 g/dL (3.4-5.0); BILIRUBIN,TOTAL 2.5 mg/dL (0.2-1.0); CALCIUM, SERUM 8.3 mg/dL (8.5-10.1); CREATININE 0.6 mg/dL (0.6-1.3); POTASSIUM 3.9 mmol/L (3.5-5.1); TOTAL PROTEIN, SERUM 8.1 g/dL (6.4-8.2)
--- NOTE | 2018-05-24 07:41 | NUR ---
M/S RN - Assessment Patient awake, A/O x 4, appears comfortable, not in any form of distress, stable on room air. IVF NS at 150 ml/hr infusing well on the right chest poppy cath with no signs of complications. Skin is intact. Patient independent with bed mobility. Fall precautions maintained. Patient educated on plan of care. Will continue with current medical management.
[2018-05-24 08:00] VITALS: BP 138/95
[2018-05-24] MEDS: HYDROXYUREA 500 MG CAPSULE PO SCH ×2 (08:21→16:45)
[2018-05-24] MEDS: FOLIC ACID 1 MG TABLET PO SCH (08:21)
[2018-05-24] MEDS: ENOXAPARIN SODIUM 40 MG/0.4 ML DISP.SYRIN SQ SCH (08:21)
[2018-05-24] MEDS: GABAPENTIN 300 MG CAPSULE PO SCH ×3 (08:21→16:45)
[2018-05-24] MEDS: FLUTICASONE/VILANTEROL 1 EACH BLST.W.DEV IH SCH (08:22)
--- NOTE | 2018-05-24 09:00 | NUR ---
M/S RN - Md order Dr. Alvarez with order to discharge patient to home today, continue home medication as ordered, no scrips needed on discharge, has sufficient amount of pain medication at home, f/u with PCP in 1 week, hematology and pain management as scheduled. Per patient, family member will be available to pick her up between 17:30-18:30. Md and Charge nurse notified.
--- NOTE | 2018-05-24 10:34 | NUR ---
M/S RN - Flu vaccine Flu vaccine given on the left deltoid with no adverse reaction seen. Patient tolerated it well.
[2018-05-24 16:00] VITALS: BP 124/86
[2018-05-24] MEDS ORDERED: HEPARIN-LOCK FLUSH PORCINE PF 10 UNITS/1 ML (10 ML)DISP.SYRIN IV ONE (16:00)
--- NOTE | 2018-05-24 16:50 | NUR ---
M/S RN - Upper right chest poppy-cath Right upper chest poppy-cath de-accessed as ordered, no redness, no swelling, no drainage noted at the site, sterile gauze applied to access area and covered with transparent dressing. Patient tolerated procedure well.
--- NOTE | 2018-05-24 19:01 | NUR ---
M/S RN - Closing notes Patient to be discharged home tonight, awaiting for family member to pick her up, A/O X 4, afebrile, denies any weakness, ambulatory with steady gait. Reviewed discharge instructions with patient and she verbalized full understanding of all teachings including medications and follow-up care with her PCP in 1 week, hematology and pain management as scheduled. Reviewed instructions to seek immediate medical attention for worsening of symptoms, chest pain, shortness of breath, fever, confusion, weakness, fatigue, dizziness, or any other emergent medical concerns. All belongings with patient and she deny any missing items. Patient refused photos to be taken of skin, no breakdown noted. Discharge paperwork signed and copies were given per protocol. Will endorse to night time babysitter accordingly.
--- NOTE | 2018-05-24 19:25 | NUR ---
RN NOTES PT DISCHARGED FROM UNIT IN STABLE CONDITION. ALL BELONGINGS AND DISCHARGE PAPERWORK SENT WITH PT. ID BAND AND IV REMOVED. ACCOMPANIED BY FRENCH PROFESSOR.
== END 2018-05-24 19:25 | disposition home or self-care (01) | DRG 662 ==
LOC: ER 04:22 → MED 06:03
PROVIDERS: ADMIT Student in an Organized Health Care Education/Training Program; ATTEND Family Medicine
DX: D57.00 Hb-SS disease with crisis, unspecified (principal); D47.3 Essential (hemorrhagic) thrombocythemia; E87.6 Hypokalemia; J45.909 Unspecified asthma, uncomplicated; G89.4 Chronic pain syndrome; D72.829 Elevated white blood cell count, unspecified; R19.7 Diarrhea, unspecified; R74.0 Nonspecific elevation of levels of transaminase and lactic acid dehydrogenase [LDH]; D64.9 Anemia, unspecified; E78.1 Pure hyperglyceridemia; Z79.891 Long term (current) use of opiate analgesic
CPT/HCPCS: 36415; 71045-TC; 71046; 80048-TC; 80053-TC; 80061-TC; 80076-TC; 81000-TC; 83605-TC; 83735-TC; 84100-TC; 84443-TC; 84703-TC; 85025-TC; 85045-TC; 85652-TC; 85730-TC; 87040-TC; 87081-TC; 87086-TC; A4216; A4606; G0378; J1170; J1200; J1642; J1644; J1650; J1956; J2405; J7030; J7042; J7050; Q0163; Q2036; Q9967; Z7610

== ENCOUNTER 2018-06-08 05:13 | Inpatient (IN) | payer MEDICAID ==
[~2018-06-08] VITALS: Ht 180.3 cm; Wt 74.5 kg
--- NOTE | 2018-06-08 05:30 | NUR ---
PT BIBSELF C/O BODY ACHES AND CHILLS WITH 102F PRIMER WATERPROOFING MACHINE ADJUSTER. PT IS AFEBRILE. PT IS AOX4. NAD NOTED. PT ON MONITOR IN BED 13. WILL CONTINUE TO MONITOR.
--- NOTE | 2018-06-08 06:20 | NUR ---
TECH AT BEDSIDE FOR EKG
[2018-06-08] MEDS ORDERED: KETOROLAC TROMETHAMINE INJ 30 MG/ML VIAL IV ONE (06:30)
[2018-06-08] MEDS ORDERED: ACETAMINOPHEN 325 MG TABLET PO ONE (06:30)
[2018-06-08] MEDS ORDERED: ONDANSETRON HCL/PF 4 MG/2 ML VIAL IV ONE (06:30)
[2018-06-08] MEDS ORDERED: IV NS 0.9% 1,000 ML BAG IV ONE (06:30)
[2018-06-08] MEDS ORDERED: KETOROLAC TROMETHAMINE 15 MG/ML VIAL ONE (06:53)
[2018-06-08] MEDS ORDERED: ONDANSETRON HCL/PF 4 MG/2 ML VIAL ONE (06:53)
[2018-06-08] MEDS ORDERED: ACETAMINOPHEN 325 MG TABLET ONE (06:54)
--- NOTE | 2018-06-08 07:20 | NUR ---
PHLEB AT BEDSIDE FOR LAB DRAW
[2018-06-08 07:26] LABS: BASOPHILS # (AUTO) 0.2 /CMM (0.0-0.2); BASOPHILS % (AUTO) 1.2 % (0.0-2.0); EOSINOPHILS % (AUTO) 0.5 % (0.0-6.0); HEMATOCRIT 29 % (33-45); LYMPHOCYTES # (AUTO) 3.3 /CMM (0.8-4.8); MEAN CORPUSCULAR HGB CONC 34 g/dl (31.0-36.0); MEAN CORPUSCULAR VOLUME 87 fL (82-100); MONOCYTES # (AUTO) 1.5 /CMM (0.1-1.30); MONOCYTES % (AUTO) 9.9 % (2.0-12.0); NEUTROPHILS % (AUTO) 66.4 % (43.0-81.0); PLATELET COUNT (AUTO) 522 /CMM (150-450); RED BLOOD CELL COUNT(AUTO) 3.36 MIL/uL (4.0-5.2); WHITE BLOOD COUNT (AUTO) 15.1 K/uL (4.3-11.0)
[2018-06-08 07:34] LABS: CALCIUM, SERUM 9.5 mg/dL (8.5-10.1); CREATININE 0.8 mg/dL (0.6-1.3); POTASSIUM 3.8 mmol/L (3.5-5.1)
[2018-06-08 07:40] LABS: ALBUMIN 3.9 g/dL (3.4-5.0); BILIRUBIN,DIRECT 0.6 mg/dL (0.0-0.2); TOTAL PROTEIN, SERUM 9.8 g/dL (6.4-8.2)
--- NOTE | 2018-06-08 08:06 | NUR ---
URINE COLLECTED AND SENT TO LAB
--- NOTE | 2018-06-08 08:36 | NUR ---
GOT BED 313-1
--- NOTE | 2018-06-08 08:39 | NUR ---
REPORT GIVEN TO KARMEN RN FOR ALONDRA
[2018-06-08] MEDS ORDERED: HYDROMORPHONE INJ 2 MG/ML DISP.SYRIN ONE (08:41)
--- NOTE | 2018-06-08 08:47 | NUR ---
MEDICATED FOR PAIN PER ERMD ORDER.
[2018-06-08] MEDS ORDERED: BUTA1CAP46 PO (08:59)
[2018-06-08] MEDS ORDERED: OXYC-128 PO (08:59)
[2018-06-08] MEDS ORDERED: ALPR2TAB2 PO (09:00)
[2018-06-08] MEDS ORDERED: HYDROMORPHONE 1 MG/1 ML DISP.SYRIN IV ONE (09:00)
[2018-06-08 09:30] VITALS: BP 118/73
--- NOTE | 2018-06-08 09:30 | NUR ---
MS/RN NOTE RECEIVED THE PATIENT ON A GURNEY. THE PATIENT IS AMBULATORY AND ABLE TO TRANSFER SELF FROM GURNEY TO BED IN SAFE MANNER. PATIENT IS ALERT AND ORIENTED X4. DENIES PAIN AT THIS TIME. IN ROOM AIR AND DENIES SOB. RESPIRATION REGULAR AND UNLABORED. ORIENTATION TO THE UNIT/ROOM IS GIVEN AND THE PATIENT VERBALIZED UNDERSTANDING. BED LOW AND LOCKED. SIDE RAILS UP X3. CALL LIGHT WITHIN REACH. WILL CONTINUE TO MONITOR.
[2018-06-08] MEDS ORDERED: VANCOMYCIN 1 GM in IV D5W 250 ML IV ONE (09:31)
--- NOTE | 2018-06-08 09:36 | NUR ---
DR RAMIRES AWARE OF PT'S ALLERGY TO ROCEPHINE. WILL PROCEED W/ ORDERED ANTIBIOTICS.
[2018-06-08 10:00] VITALS: BP 103/72
--- NOTE | 2018-06-08 10:05 | NUR ---
MS/RN NOTE PER DR ALIS DEVI TO USE RIGHT CHEST PORTACATH FOR IV FLUIDS AND MEDICATIONS.
[2018-06-08] MEDS ORDERED: CEFEPIME 1 GM in IV D5W 50 ML IV STA (10:25)
[2018-06-08] MEDS ORDERED: ACETAMINOPHEN 325 MG TABLET PO PRN (10:30)
[2018-06-08] MEDS ORDERED: MAGNESIUM HYDROXIDE 30 ML UDC PO PRN (10:30)
[2018-06-08] MEDS ORDERED: ONDANSETRON HCL/PF 4 MG/2 ML VIAL IVP PRN (10:30)
[2018-06-08] MEDS ORDERED: ZOLPIDEM TARTRATE 5 MG TABLET PO PRN (10:30)
[2018-06-08] MEDS ORDERED: Z GUARD REMEDY 2 OZ OINT TP PRN (10:30)
[2018-06-08] MEDS ORDERED: MAG HYDROX/AL HYDROX/SIMETH 30 ML UDC PO PRN (10:30)
[2018-06-08] MEDS ORDERED: KETOROLAC TROMETHAMINE INJ 30 MG/ML VIAL IM PRN (10:30)
--- NOTE | 2018-06-08 10:30 | NUR ---
MS/RN NOTE RECEIVED ORDER FROM DR SNELL TO DISCONTINUE MAXIPIME IV DUE AT 1025 DUE TO PATIENT ALLERGIES. THE ORDER IS READ BACK, VERIFIED. NOTED AND CARRIED OUT. THE PATIENT IS MADE AWARE.
[2018-06-08] MEDS: HYDROCODONE/APAP 10/325MG 1 EA TABLET PO PRN ×2 (10:51→15:28)
--- NOTE | 2018-06-08 10:51 | NUR ---
MS/RN NOTE THE PATIENT HAS COMPLIANT OF GENERALIZED BODY PAIN 02/12. REPOSITIONING AND RELAXATION IS ENCOURAGED BUT INEFFECTIVE. NORCO 10/ 1 TAB PO IS GIVEN. WILL CONTINUE TO MONITOR.
[2018-06-08] MEDS: IV NS 0.9% 1,000 ML IV PRN ×2 (10:58→18:06)
[2018-06-08 11:05] LABS: APPEARANCE,URINE SL CLOUDY (CLEAR); BILIRUBIN,URINE NEGATIVE (NEGATIVE); BLOOD, URINE NEGATIVE Ery/uL (NEGATIVE); COLOR,URINE DARK YELLO (YELLOW); KETONES,URINE NEGATIVE (NEGATIVE); LEUKOCYTE ESTERASE ,URINE NEGATIVE (NEGATIVE); NITRITE, URINE NEGATIVE (NEGATIVE); PROTEIN,URINE TRACE mg/dl (NEGATIVE); UGLUCOSE NEGATIVE (NEGATIVE)
[2018-06-08 11:23] LABS: BACTERIA,URINE None seen /HPF (None Seen); RBC,URINE NONE SEEN /HPF (0-2); SQUAMOUS EPITHELIAL CELL,UR Rare /HPF (None Seen); WBC,URINE NONE SEEN /HPF (0-3)
--- NOTE | 2018-06-08 11:51 | NUR ---
MS/RN NOTE THE PATIENT VERBALIZED EFFECTIVENESS OF NORCO 10/325 RATING PAIN 3/10. PATIENT DOES NOT REQUEST OF PAIN MEDICATION AT THIS TIME, PATIENT WANTS TO SLEEP. WILL CONTINUE TO MONITOR.
[2018-06-08] MEDS ORDERED: ALPRAZOLAM 1 MG TABLET PO PRN (12:00)
[2018-06-08] MEDS ORDERED: BUTALB/APAP/CAFFEINE 1 EACH TABLET PO PRN (12:00)
[2018-06-08] MEDS ORDERED: FEE PK DOSING 1 MIN EA MC ONE (12:06)
--- NOTE | 2018-06-08 12:51 | NUR ---
MS/RN NOTE THE PATIENT COMPLAINS OF GENETALIZED BODY PAIN 10/12. TORADOL 30 MG IV PUSH GIVEN. WILL CONTINUE TO MONITOR.
[2018-06-08] MEDS: MEROPENEM 1 G in IV NS 0.9% 100 ML IV SCH ×2 (12:54→20:37)
[2018-06-08] MEDS ORDERED: ALBUTEROL FS 2.5 MG/3 ML VIAL.NEB NEB PRN (13:30)
--- NOTE | 2018-06-08 15:01 | NUR ---
MS/RN NOTE THE PATIENT REQUESTED DILAUDID PAIN MEDICATION FOR BREAKTHROUGH PAIN. DR SNELL IS MADE AWARE AND RECEIVED NEW OF DILAUDID 0.5 MG Q4H PRN AND TO DISCONTINUE TORADOL 30 MG PRN. THE ORDERS ARE READ BACK, VERIFIED. NOTED AND CARRIED OUT. THE PATIENT IS MADE AWARE.
--- NOTE | 2018-06-08 15:28 | NUR ---
MS/RN NOTE THE PATIENT COMPLAINS FO GENERALIZED BODY PAIN 10/10. NORCO 10/325 1 TAB PO IS ADMINISTERED. WILL CONTINUE TO MONITOR.
[2018-06-08 16:00] VITALS: BP 99/62
--- NOTE | 2018-06-08 16:28 | NUR ---
MS/RN NOTE THE PATIENT VERBALIZES THAT NORCO 10/325 1 TAB PO GIVEN EARLIER IS NOT EFFECTIVE. REST AND RELAXATION IS ENCOURAGED. WILL ADMINISTER DILAUDID PER REQUEST.
[2018-06-08] MEDS: HYDROXYUREA 500 MG CAPSULE PO SCH (16:37)
[2018-06-08] MEDS: HYDROMORPHONE INJ 2 MG/ML DISP.SYRIN IV PRN ×2 (16:38→20:38)
--- NOTE | 2018-06-08 16:38 | NUR ---
MS/RN NOTE THE PATIENT COMPLAINS OF GENERALIZED BODY PAIN 02/12. PRN DILAUDID 0.5 MG IV PUSH IS GIVEN. WILL CONTINUE TO MONITOR.
--- NOTE | 2018-06-08 17:08 | NUR ---
MS/RN NOTE THE PATIENT VERBALIZED DILAUDID IV PUSH BEING EFFECTIVE AND RATED PAIN 0/10. THE PATIENT IN NO APPARENT DISTRESS. RESPIRATION REGULAR AND UNLABORED.
[2018-06-08] MEDS ORDERED: Medication Not On Formulary EA (Melatonin 3 MG) PO SCH (18:00)
[2018-06-08] MEDS: VANCOMYCIN 1 GM in IV D5W 250 ML IV SCH (18:06)
[2018-06-08] MEDS: HYDROCODONE/APAP 5/325MG 1 EACH TABLET PO PRN (18:07)
--- NOTE | 2018-06-08 18:07 | NUR ---
MS/RN NOTE PATIENT COMPLAINS OF GENERALIZED PAIN 11/12. NORCO 5/325 1 TAB PO IS GIVEN. WILL CONTINUE TO MONITOR.
--- NOTE | 2018-06-08 19:40 | NUR ---
RN NOTES RECEIVE PT IN THE BED A/O X 4, IN STABLE CONDITION, NOT IN DISTRESS, SAFETY MEASURES IN PLACE. WILL CONTINUE TO MONITOR.
[2018-06-08 20:00] VITALS: BP 107/73
[2018-06-08 20:09] VITALS: BP 107/73
[2018-06-09] MEDS: HYDROMORPHONE INJ 2 MG/ML DISP.SYRIN IV PRN ×6 (00:41→21:23)
--- NOTE | 2018-06-09 00:41 | NUR ---
rn Pain medication dilaudid per pt request patient vs bp 115/66 pulse 67
[2018-06-09] MEDS: VANCOMYCIN 1 GM in IV D5W 250 ML IV SCH ×3 (02:04→17:01)
[2018-06-09] MEDS: IV NS 0.9% 1,000 ML IV PRN ×3 (02:04→20:40)
--- NOTE | 2018-06-09 04:47 | NUR ---
PER PT REQUEST WANTS ONLY DILAUDID OFFERED NORCO BUT PT REFUSED PER PT IT DOESNT DO ANYTHING DESPITE EXPLAINING RISKS AND BENEFITS WILL GIVE DILAUDID ORDERED PER ORDER DR. SNELL AWARE BP 123/75 HR 69 100% R.A
[2018-06-09] MEDS: MEROPENEM 1 G in IV NS 0.9% 100 ML IV SCH ×3 (04:48→20:37)
--- NOTE | 2018-06-09 06:11 | NUR ---
RN CLOSING NOTE PT IN BED RESTING ASLEEP AND EASILY AWAKEN. TOLERATING ROOM AIR 100%. NO S/S OF RESP DISTRESS OR SOB. PAIN MANAGED WITH PAIN MEDICATION AND EDUCATION AND RELAXATION, TOLERATED WELL. ALL PT NEEDS ANTICIPATED AND MET. KEPT CLEAN AND DRY AND COMFORT, SAFETY MEASURES IN PLACE, CALL LIGHT WITHIN REACH. WILL ENDORSE TO CREDIT ANALYST FOR ALONDRA.
[2018-06-09 06:45] LABS: BASOPHILS # (AUTO) 0.1 /CMM (0.0-0.2); BASOPHILS % (AUTO) 0.8 % (0.0-2.0); EOSINOPHILS % (AUTO) 3.4 % (0.0-6.0); HEMATOCRIT 29 % (33-45); HEMOGLOBIN 9.9 g/dL (11.5-14.8); LYMPHOCYTES # (AUTO) 3.9 /CMM (0.8-4.8); MEAN CORPUSCULAR HGB CONC 34 g/dl (31.0-36.0); MEAN CORPUSCULAR VOLUME 89 fL (82-100); MONOCYTES # (AUTO) 1.3 /CMM (0.1-1.30); MONOCYTES % (AUTO) 11.2 % (2.0-12.0); NEUTROPHILS # (AUTO) 6.1 /CMM (1.8-8.9); NEUTROPHILS % (AUTO) 51.6 % (43.0-81.0); PLATELET COUNT (AUTO) 477 /CMM (150-450); RED BLOOD CELL COUNT(AUTO) 3.31 MIL/uL (4.0-5.2); WHITE BLOOD COUNT (AUTO) 11.8 K/uL (4.3-11.0)
[2018-06-09 07:14] LABS: ALBUMIN 3.4 g/dL (3.4-5.0); BILIRUBIN,DIRECT 0.5 mg/dL (0.0-0.2); BILIRUBIN,TOTAL 3.5 mg/dL (0.2-1.0); CALCIUM, SERUM 8.6 mg/dL (8.5-10.1); CREATININE 0.7 mg/dL (0.6-1.3); MAGNESIUM 2.1 mg/dL (1.8-2.4); PHOSPHORUS 3.9 mg/dL (2.5-4.9); POTASSIUM 3.7 mmol/L (3.5-5.1); TOTAL PROTEIN, SERUM 8.7 g/dL (6.4-8.2)
[2018-06-09 08:00] VITALS: BP 117/79
[2018-06-09] MEDS: FOLIC ACID 1 MG TABLET PO SCH (08:45)
[2018-06-09] MEDS: FLUTICASONE/VILANTEROL 1 EACH BLST.W.DEV IH SCH (09:00)
[2018-06-09] MEDS: HYDROXYUREA 500 MG CAPSULE PO SCH ×2 (09:12→16:56)
[2018-06-09 09:51] LABS: THYROID STIMULATING HORMONE 3.061 uIU/mL (0.358-3.74)
[2018-06-09] MEDS: HYDROCODONE/APAP 5/325MG 1 EACH TABLET PO PRN (10:39)
[2018-06-09] MEDS ORDERED: diphenhydrAMINE HCL 25 MG CAPSULE PO PRN (12:00)
[2018-06-09 16:00] VITALS: BP 131/74
--- NOTE | 2018-06-09 19:00 | NUR ---
RN NOTES RECEIVE PT IN THE BED A/O X 4, IN STABLE CONDITION, NOT IN DISTRESS, SAFETY MEASURES IN PLACE. WILL CONTINUE TO MONITOR.
--- NOTE | 2018-06-09 19:20 | NUR ---
PT IN BED RESTING ASLEEP AND EASILY AWAKEN. TOLERATING ROOM AIR. NO S/S OF RESP DISTRESS OR SOB. PAIN MANAGED WITH PAIN MEDICATION AND EDUCATION AND RELAXATION, TOLERATED WELL. ALL PT NEEDS ANTICIPATED. YOLANDA CATH NEEDLE CHANGED WITH DRESSING .SAFETY MEASURES IN PLACE, CALL LIGHT WITHIN REACH. WILL ENDORSE TO AUCTION ASSISTANT FOR ALONDRA.
[2018-06-09 20:00] VITALS: BP 114/82
[2018-06-10] MEDS: HYDROMORPHONE INJ 2 MG/ML DISP.SYRIN IV PRN ×5 (01:37→20:13)
[2018-06-10] MEDS: VANCOMYCIN 1 GM in IV D5W 250 ML IV SCH ×3 (01:38→17:15)
[2018-06-10] MEDS: MEROPENEM 1 G in IV NS 0.9% 100 ML IV SCH ×3 (05:08→21:14)
[2018-06-10] MEDS: IV NS 0.9% 1,000 ML IV PRN (05:09)
--- NOTE | 2018-06-10 06:15 | NUR ---
RN CLOSING NOTE AWAKE, WATCHING TV. TOLERATING ROOM AIR 100%. NO S/S OF RESP DISTRESS. VS STABLE. PAIN MANAGED WITH PAIN MEDICATION TOLERATED WELL. NEEDS ATTENDED AND ANTICIPATED. KEPT CLEAN AND DRY AND COMFORT, SAFETY MEASURES IN PLACE, CALL LIGHT WITHIN REACH. WILL ENDORSE TO OFFBEARER SEWER PIPE FOR ALONDRA.
[2018-06-10 06:19] LABS: CREATININE 0.5 mg/dL (0.6-1.3); MAGNESIUM 1.7 mg/dL (1.8-2.4); POTASSIUM 4.2 mmol/L (3.5-5.1)
[2018-06-10 06:49] LABS: BASOPHILS # (AUTO) 0.1 /CMM (0.0-0.2); HEMATOCRIT 27 % (33-45); HEMOGLOBIN 9.2 g/dL (11.5-14.8); LYMPHOCYTES # (AUTO) 2.9 /CMM (0.8-4.8); LYMPHOCYTES % (AUTO) 25.1 % (20.0-44.0); MEAN CORPUSCULAR HGB CONC 34 g/dl (31.0-36.0); MEAN CORPUSCULAR VOLUME 89 fL (82-100); MONOCYTES % (AUTO) 8.6 % (2.0-12.0); NEUTROPHILS # (AUTO) 6.7 /CMM (1.8-8.9); NEUTROPHILS % (AUTO) 59.3 % (43.0-81.0); PLATELET COUNT (AUTO) 456 /CMM (150-450); RED BLOOD CELL COUNT(AUTO) 3.07 MIL/uL (4.0-5.2); WHITE BLOOD COUNT (AUTO) 11.4 K/uL (4.3-11.0)
--- NOTE | 2018-06-10 07:22 | NUR ---
MS RN OPENING NOTES AWAKE,A/OX4. PT ON ROOM AIR TOLERATING WELL. NO S/S OF RESP DISTRESS. SAFETY MEASURES IN PLACE, CALL LIGHT WITHIN REACH. WILL CONTINUE TO MONITOR
[2018-06-10 08:00] VITALS: BP 113/53
[2018-06-10] MEDS: FLUTICASONE/VILANTEROL 1 EACH BLST.W.DEV IH SCH (09:00)
[2018-06-10] MEDS: HYDROXYUREA 500 MG CAPSULE PO SCH ×2 (09:39→17:02)
[2018-06-10] MEDS: FOLIC ACID 1 MG TABLET PO SCH (09:39)
[2018-06-10] MEDS: Magnesium 1GM/D5W 100ML PREMIX 100 ML IV SCH ×2 (09:41→11:11)
[2018-06-10 16:00] VITALS: BP 102/77
[2018-06-10] MEDS: HYDROCODONE/APAP 10/325MG 1 EA TABLET PO PRN (17:09)
--- NOTE | 2018-06-10 18:58 | NUR ---
PT AWAKE, WATCHING TV IN BED. TOLERATING ROOM AIR 100%. NO S/S OF RESP DISTRESS. PAIN MANAGED WITH PAIN MEDICATION TOLERATED WELL. NEEDS ATTENDED AND ANTICIPATED.SAFETY MEASURES IN PLACE, CALL LIGHT WITHIN REACH. WILL ENDORSE TO CHAIN TENDER FOR ALONDRA.
--- NOTE | 2018-06-10 19:50 | NUR ---
RN OPENING NOTES RECEIVED REPORT FROM [facility] ARACELI ESPARZA. FOUND Pt AWAKE, RESTING IN BED, WATCHING TV ON HER PHONE. NO S/S OF ACUTE DISTRESS OR SOB NOTED. RESPIRATIONS EVEN AND UNLABORED. Pt IS A/OX4, VERBAL, ABLE TO MAKE NEEDS KNOWN. IV ACCESS ON RCW PORTACATH. FLUID IS OFF AT THE MOMENT SINCE Pt WENT TO RESTROOM RECENTLY AND WANTS IT OFF FOR THE TIME BEING. SAFETY MEASURES IN PLACE. BED LOW, LOCKED, HOB ELEVATED, SIDE RAILS UP, CALL LIGHT AND BEDSIDE TABLE WITHIN REACH. WILL CONTINUE TO MONITOR Pt's CONDITION AND SAFETY THROUGHOUT THE NIGHT.
[2018-06-10 20:00] VITALS: BP 108/74
[2018-06-11] MEDS: HYDROMORPHONE INJ 2 MG/ML DISP.SYRIN IV PRN ×3 (00:34→08:38)
[2018-06-11] MEDS: IV NS 0.9% 1,000 ML IV PRN (04:36)
[2018-06-11 07:29] LABS: CALCIUM, SERUM 8.5 mg/dL (8.5-10.1); CREATININE 0.6 mg/dL (0.6-1.3); MAGNESIUM 1.8 mg/dL (1.8-2.4); POTASSIUM 4.1 mmol/L (3.5-5.1)
--- NOTE | 2018-06-11 07:39 | NUR ---
RN CLOSING NOTES NO SIGNIFICANT CHANGES IN Pt's CONDITION. Pt IS STABLE AT THIS TIME. NO S/S OF ACUTE DISTRESS OR SOB NOTED DURING THE NIGHT. ALL NEEDS MET AND ATTENDED TO. Pt IS AWAKE RESTING IN BED, RESPIRATIONS EVEN AND UNLABORED. SAFETY MEASURES IN PLACE. ENDORSED TO DAYSHIFT RN FOR Pt's ALONDRA.
--- NOTE | 2018-06-11 07:40 | NUR ---
MS RN Opening Note Received patient awake, resting in bed. Patient alert and oriented x 4, able to make needs known. Respirations even and unlabored, saturating on room air. No acute distress noted and no complaints of pain at this time. Access on right chest wall Port-a-cath, intact, patent and running NS at 150 mL/hr. Safety and Fall precautions in place: bed in lowest and locked position, side rails up x 2, bed alarm on, call light within reach. Reviewed safety measures and plan of care with patient and , verbalized understanding. Will continue to monitor and intervene as needed. Addendum: 06/11/18 at 0742 by BRIA NORIEGA RN Correction: is not for this patient. Entered incorrectly, currently no visitors at the bedside.
[2018-06-11 08:00] VITALS: BP 137/95
[2018-06-11] MEDS: HYDROXYUREA 500 MG CAPSULE PO SCH ×2 (08:37→17:00)
[2018-06-11] MEDS: FOLIC ACID 1 MG TABLET PO SCH (08:37)
[2018-06-11] MEDS: FLUTICASONE/VILANTEROL 1 EACH BLST.W.DEV IH SCH (08:39)
[2018-06-11] MEDS: HYDROCODONE/APAP 10/325MG 1 EA TABLET PO PRN ×2 (09:52→14:55)
[2018-06-11] MEDS ORDERED: HYDROMORPHONE INJ 2 MG/ML DISP.SYRIN IV ONE ×2 (10:30→13:15)
[2018-06-11 15:46] VITALS: BP 126/75
--- NOTE | 2018-06-11 18:30 | NUR ---
MS RN Closing Note Patient currently awake, resting in bed. Patient alert and oriented x 4, able to make needs known. Respirations even and unlabored, saturating on room air. No acute distress noted and no complaints of pain at this time. Pain controlled with PRN medications as ordered. All other medications given as ordered. Access on right chest wall Port-a-cath, intact, patent and saline locked. Safety and Fall precautions in place: bed in lowest and locked position, side rails up x 2, bed alarm on, call light within reach. Reviewed safety measures and plan of care with patient, verbalized understanding. Will endorse to [employer] shift supervisor RN for continuity of care.
[2018-06-11 20:00] VITALS: BP 107/74
--- NOTE | 2018-06-11 20:00 | NUR ---
MS/RN OPENING NOTES RECEIVED PATIENT IN BED, RESTING COMFORTABLY IN BED, RESPIRATIONS EVEN AND UNLABORED, ASLEEP, BUT ABLE PARTICIPATE WITH CARE, KEPT COMFORTABLE, RECEIVED ENDORSEMENT FROM AM RN FOR ALONDRA, WILL MONITOR.
--- NOTE | 2018-06-11 20:01 | NUR ---
MS/RN NOTES BED LOCKED, CALL LIGHTS WITHIN REACH, OFFERED FLUIDS.
[2018-06-11 20:33] VITALS: BP 107/74
--- NOTE | 2018-06-12 01:36 | NUR ---
MS/RN NOTES PATIENT AWAKEN FROM SLEEP, REPORTED PAIN LEVEL OF 9/10, NORCO 10-325 MG PO ORDER PRN TO GIVE, VERBALIZE UNDERSTANDING AND TO F/U DIALAUDID PER PATIETN REQUEST WILL CALL MD.
[2018-06-12] MEDS: HYDROCODONE/APAP 10/325MG 1 EA TABLET PO PRN ×4 (01:40→17:00)
--- NOTE | 2018-06-12 02:12 | NUR ---
MS/RN NOTES RECEIVED ORDER FROM MD LUJAN FOR ONE TIME ONLY IV DILAUDID IMG IVP AND F/U WITH AM FOR PAIN MEDICATION. FOR CHRONIC BACK PAIN. TO MONITOR
[2018-06-12] MEDS ORDERED: HYDROMORPHONE 1 MG/1 ML DISP.SYRIN IV PRN (02:30)
[2018-06-12] MEDS ORDERED: HYDROMORPHONE INJ 2 MG/ML DISP.SYRIN IV PRN (03:37)
--- NOTE | 2018-06-12 04:03 | NUR ---
MS/RN NOTES IV P INJECTION DILAUDID 1MG/0.5ML ADMINISTERED, SLOWLY AND FLUSHED ON RCW SITE PORT , TOLERATED AND WILL MONITOR, PAIN RELIEF.
--- NOTE | 2018-06-12 04:41 | NUR ---
MS/RN NOTES PATIETN ALERT, ORIENTED, WATCHING TV FOR DISTRACTION. WHEN ASK HOW MUCH PAIN REPORTED AT 8/10. WITH NO GRIMACE OR GUARDING, WILL F/U IN AM FOR ANY PAIN MEDICATION NEEDS.
--- NOTE | 2018-06-12 06:01 | NUR ---
MS/RN NOTES PATIENT AWAKE, REPORTED PAIN IN LOWER BACK, NORCO 10-325 MG PO NEEDED REQUESTED, ABLE TO VERBALIZE NEEDS, USES PHONE FOR DISTRACTION, WILL MONITOR. CAN SWALLOW AND TOLERATE FLUIDS,
--- NOTE | 2018-06-12 07:30 | NUR ---
MS RN Opening Note Patient received currently awake, resting in bed. Patient alert and oriented x 4, able to make needs known. Respirations even and unlabored, saturating on room air. No acute distress noted and no complaints of pain at this time. Access on right chest wall Port-a-cath, intact, patent and saline locked. Safety and Fall precautions in place: bed in lowest and locked position, side rails up x 2, bed alarm on, call light within reach. Reviewed safety measures and plan of care with patient, verbalized understanding. Will continue to monitor and intervene as needed.
[2018-06-12 07:34] LABS: CREATININE 0.6 mg/dL (0.6-1.3); POTASSIUM 3.8 mmol/L (3.5-5.1)
--- NOTE | 2018-06-12 07:35 | NUR ---
325-2 MS/RN NOTES PATIENT ABLE TO SLEEP INTERMITENTLY, ALERT, ORIENTE X3, WATCHES TV FOR DISTRACTION, ON PAIN MANAGEMENT MONITORING, ONE TIME DILAUDID GIVE PER MD LUJAN BUT TO F/U ORDER FROM AM , ABLE TO DO SELF CARE.. WILL MONITOR. CALL LIGHTS WITHIN REACH, BED BLANCO
[2018-06-12 08:00] VITALS: BP 115/69
[2018-06-12] MEDS: FLUTICASONE/VILANTEROL 1 EACH BLST.W.DEV IH SCH (08:33)
[2018-06-12] MEDS: FOLIC ACID 1 MG TABLET PO SCH (08:35)
[2018-06-12] MEDS: HYDROXYUREA 500 MG CAPSULE PO SCH ×2 (08:35→17:00)
[2018-06-12] MEDS ORDERED: HYDROMORPHONE INJ 2 MG/ML DISP.SYRIN IV ONE (14:00)
[2018-06-12 16:00] VITALS: BP 128/70
[2018-06-12] MEDS: GABAPENTIN 300 MG CAPSULE PO SCH (18:54)
--- NOTE | 2018-06-12 19:00 | NUR ---
MS RN Closing Note Patient currently awake, resting in bed, watching the Iphone. Patient alert and oriented x 4, able to make needs known. Respirations even and unlabored, saturating on room air. No acute distress noted and complains of generalized 9/10 pain at this time. Pain managed with PRN medications as ordered, all other medications given as ordered. Access on right chest wall Port-a-cath, intact, patent and saline locked. Safety and Fall precautions in place: bed in lowest and locked position, side rails up x 2, bed alarm on, call light within reach. Reviewed safety measures and plan of care with patient, verbalized understanding. Will endorse to overnight cashier RN for continuity of care.
--- NOTE | 2018-06-12 19:20 | NUR ---
RN OPENING NOTES RECEIVED PT IN BED, ASLEEP BUT EASILY AROUSABLE. VERBALLY RESPONSIVE AND IN NO DISTRESS AT THIS TIME.ALL PATIENT'S NEEDS ATTENDED TO. CALL LIGHT PLACED WITHIN EASY REACH. WILL CONTINUE TO MONITOR PT. BED IN LOW POSITION AND LOCKED IN PLACE. WILL CONTINUE TO MONITOR PT.
[2018-06-12 20:00] VITALS: BP 112/70
[2018-06-13] MEDS: HYDROCODONE/APAP 10/325MG 1 EA TABLET PO PRN (04:25)
--- NOTE | 2018-06-13 06:46 | NUR ---
CUSTOMER SUPPORT CONSULTANT CLOSING NOTES PT IN BED, ASLEEP BUT EASILY AROUSABLE, NO SOB NOTED, VERBALLY RESPONSIVE AND IN NO ACUTE DISTRESS AT THIS TIME. ALL PATIENT'S NEEDS ATTENDED TO THROUGHOUT THE SHIFT. ALL DUE MEDICATION GIVEN ORDERED. WILL ENDORSE TO AM SHIFT NURSE FOR CONTINUITY OF CARE. Addendum: 06/13/18 at 0649 by KELLY HERNANDES RN PLEASE DISREGARD THIS NOTE. NOTE FOR DIFFERENT PT.
--- NOTE | 2018-06-13 06:49 | NUR ---
RN MS CLOSING NOTES PATIENT SLEPT WELL THROUGHOUT THE SHIFT, NO SOB NOTED, IN NO DISTRESS. ALL PATIENT'S NEEDS ATTENDED TO THROUGHOUT THE SHIFT. RE-ORIENTED PT REGARDING PLAN OF CARE AND USE OF OPIOID MEDICATION, PT VERBALIZED UNDERSTANDING. PLACED CALL LIGHT WITHIN EASY REACH. BED IN LOW POSITION AND LOCKED IN PLACE. WILL ENDORSE TO AM SHIFT NURSE FOR CONTINUITY OF CARE.
[2018-06-13 06:53] LABS: BASOPHILS # (AUTO) 0.1 /CMM (0.0-0.2); BASOPHILS % (AUTO) 0.7 % (0.0-2.0); EOSINOPHILS % (AUTO) 2.7 % (0.0-6.0); HEMATOCRIT 26 % (33-45); LYMPHOCYTES # (AUTO) 2.4 /CMM (0.8-4.8); LYMPHOCYTES % (AUTO) 20.6 % (20.0-44.0); MEAN CORPUSCULAR HGB CONC 34 g/dl (31.0-36.0); MEAN CORPUSCULAR VOLUME 87 fL (82-100); MONOCYTES # (AUTO) 0.9 /CMM (0.1-1.30); NEUTROPHILS # (AUTO) 7.8 /CMM (1.8-8.9); PLATELET COUNT (AUTO) 392 /CMM (150-450); RED BLOOD CELL COUNT(AUTO) 3.02 MIL/uL (4.0-5.2); WHITE BLOOD COUNT (AUTO) 11.4 K/uL (4.3-11.0)
[2018-06-13 07:11] LABS: CALCIUM, SERUM 9.2 mg/dL (8.5-10.1); CREATININE 0.5 mg/dL (0.6-1.3); MAGNESIUM 1.9 mg/dL (1.8-2.4); PHOSPHORUS 4.6 mg/dL (2.5-4.9); POTASSIUM 4.1 mmol/L (3.5-5.1)
--- NOTE | 2018-06-13 07:30 | NUR ---
RN MS NOTES PT IN BED, AWAKE, ALERT, USING HER CELLPHONE, NO COMPLAINT OF PAIN, RESPIRATIONS NORMAL, CALL LIGHT WITHIN REACH.
[2018-06-13 08:00] VITALS: BP 114/71
[2018-06-13] MEDS: FLUTICASONE/VILANTEROL 1 EACH BLST.W.DEV IH SCH (09:00)
[2018-06-13] MEDS: FOLIC ACID 1 MG TABLET PO SCH (09:02)
[2018-06-13] MEDS: GABAPENTIN 300 MG CAPSULE PO SCH (09:02)
[2018-06-13] MEDS: HYDROXYUREA 500 MG CAPSULE PO SCH (09:02)
[2018-06-13] MEDS ORDERED: HEPARIN-LOCK FLUSH PORCINE PF 10 UNITS/1 ML (10 ML)DISP.SYRIN IV ONE (10:30)
--- NOTE | 2018-06-13 11:20 | NUR ---
RN MS NOTES PT IN BED, AWAKE, ALERT AND ORIENTED, NO COMPLAINT OF PAIN, NOT IN DISTRESS, DISCHARGE ORDER GIVEN BY DR. SNELL, PT INFORMED, PT REFUSED BODY CHECK, FLUSHED PT'S PORTACATH WITH HEPARIN ORDERED BY MD, DISCHARGE AND MEDICATION INSTRUCTIONS PROVIDED TO PT, REMINDED PT TO FOLLOW UP WITH HER PRIMARY CARE PHYSICIAN AND PAIN MANAGEMENT DOCTOR, VERBALIZED UNDERSTANDING, PORTACATH EXTENSION LINE REMOVED, PT TOLERATED PROCEDURE WELL, NO BLEEDING NOTED, BELONGINGS ACCOUNTED FOR, DISCHARGE PAPERS SIGNED, PT STATED THAT A FRIEND OF HERS WILL PICK HER UP, EXPLAINED TO PT THAT I HAVE TO MAKE COPIES OF HER DISCHARGE PAPERS FOR OUR CHART AND WILL GIVE HER COPIES BUT WHEN I GOT BACK TO THE ROOM, PT ALREADY LEFT WITH ALL BELONGINGS, CHECKED PT AT THE HOSPITAL LOBBY BUT SHE LEFT ALREADY.
== END 2018-06-13 11:15 | disposition home or self-care (01) | DRG 662 ==
LOC: ER 05:18 → MED 09:11
PROVIDERS: ADMIT Internal Medicine; ATTEND Internal Medicine
DX: D57.00 Hb-SS disease with crisis, unspecified (principal); F11.20 Opioid dependence, uncomplicated; D72.829 Elevated white blood cell count, unspecified; J45.909 Unspecified asthma, uncomplicated; E87.6 Hypokalemia; G89.4 Chronic pain syndrome; R74.0 Nonspecific elevation of levels of transaminase and lactic acid dehydrogenase [LDH]; D64.9 Anemia, unspecified; E78.1 Pure hyperglyceridemia; D47.3 Essential (hemorrhagic) thrombocythemia; M54.9 Dorsalgia, unspecified; Z90.49 Acquired absence of other specified parts of digestive tract; Z91.010 Allergy to peanuts; Z79.51 Long term (current) use of inhaled steroids
CPT/HCPCS: 36415; 71045-TC; 73502; 76700-TC; 80048-TC; 80074; 80076-TC; 80202-TC; 81000-TC; 83540-TC; 83605-TC; 83735-TC; 84100-TC; 84443-TC; 84703-TC; 85025-TC; 85045-TC; 85730-TC; 87040-TC; 87081-TC; 87400; 87806; G0378; J0692; J1170; J1642; J1885; J2185; J2405; J3370; J3475; J7030; J7050; J7060; Q0163